=== PATIENT | female | born 1955 | race American Indian/Alaskan Native ===

== ENCOUNTER 2017-01-03 15:48 | Outpatient (CLI) | payer OTHER ==
--- NOTE | 2017-01-03 16:46 | Mammography Report ---
Screening mammogram: The patient has a heterogeneously dense breast pattern. There is a circumscribed mass in the right breast unchanged from prior exams dating back to 2014 and based on prior dictation at least 2013. The overall breast pattern is heterogeneously dense bilaterally. In the superior left breast seen only in the MLO projection is an asymmetry that I cannot identify on prior exams. It is not identifiable in the CC view. No other interval changes are identified. CAD used Impression: Right breast asymmetry. Recommendation: Additional views of the left breast. Ultrasound, if needed. BI-RADS CATEGORY: 0 = Needs additional imaging evaluation ACR BI-RADS MAMMOGRAPHIC CODES: 0 = Needs additional imaging evaluation; 1 = Negative; 2 = Benign; 3 = Probably benign; 4 = Suspicious; 5 = Malignant; 6 = Known biopsy-proven malignancy COMMENT: 1. Dense breast tissue, i.e., adenosis, fibrocystic changes, etc., may obscure an underlying neoplasm. 2. Approximately 10% of cancers are not detected with mammography. 3. A negative mammography report should not delay biopsy if a clinically suspicious mass is present.
== END 2017-01-03 15:49 | disposition home or self-care (01) ==
LOC: SPVWC 15:48
PROVIDERS: ATTEND Obstetrics & Gynecology
DX: Z12.31 Encounter for screening mammogram for malignant neoplasm of breast (principal)
CPT/HCPCS: 77067; G0202

== ENCOUNTER 2017-01-19 15:10 | Outpatient (CLI) | payer OTHER ==
--- NOTE | 2017-01-19 15:50 | Mammography Report ---
LEFT DIGITAL DIAGNOSTIC MAMMOGRAM : 01/19/17 15:10:00 CLINICAL: Recalled for asymmetry. COMPARISON:01/03/17 screening FINDINGS: Initial lateralmedial and spot views demonstrate a persistent asymmetry but a spot magnification MLO view demonstrates satisfactory effacement of the asymmetry. IMPRESSION: A probably benign asymmetry. BI-RADS CATEGORY: 3 - - Probably Benign RECOMMENDATION: Six month followup left mammogram. ACR BI-RADS MAMMOGRAPHIC CODES: 0 = Needs additional imaging evaluation; 1 = Negative; 2 = Benign; 3 = Probably benign; 4 = Suspicious; 5 = Malignant; 6 = Known biopsy-proven malignancy COMMENT: 1. Dense breast tissue, i.e., adenosis, fibrocystic changes, etc., may obscure an underlying neoplasm. 2. Approximately 10% of cancers are not detected with mammography. 3. A negative mammography report should not delay biopsy if a clinically suspicious mass is present. COMMENT: Patient follow-up letters are generated via our [employer] application.
== END 2017-01-19 15:11 | disposition home or self-care (01) ==
LOC: SPVWC 15:10
PROVIDERS: ATTEND Obstetrics & Gynecology
DX: R92.8 Other abnormal and inconclusive findings on diagnostic imaging of breast (principal)
CPT/HCPCS: G0206-LT

== ENCOUNTER 2017-08-23 13:07 | Outpatient (CLI) | payer OTHER ==
--- NOTE | 2017-08-25 13:00 | Mammography Report ---
LEFT DIGITAL DIAGNOSTIC MAMMOGRAM with CAD: 08/23/17 13:07:00 CLINICAL: Follow-up asymmetry. COMPARISON:01/19/17 FINDINGS: The breast is heterogeneously dense, which may obscure small masses. The previously described asymmetry is much smaller and correlates with a skin mole that is marked on this exam but not on previous exams. No mass, architectural distortion or suspicious calcifications. IMPRESSION: No mammographic evidence of malignancy. BI-RADS CATEGORY: 1 - - Negative RECOMMENDATION: Return to routine mammographic screening. ACR BI-RADS MAMMOGRAPHIC CODES: 0 = Needs additional imaging evaluation; 1 = Negative; 2 = Benign; 3 = Probably benign; 4 = Suspicious; 5 = Malignant; 6 = Known biopsy-proven malignancy COMMENT: 1. Dense breast tissue, i.e., adenosis, fibrocystic changes, etc., may obscure an underlying neoplasm. 2. Approximately 10% of cancers are not detected with mammography. 3. A negative mammography report should not delay biopsy if a clinically suspicious mass is present. COMMENT: Patient follow-up letters are generated by our [employer] application.
== END 2017-08-23 13:08 | disposition home or self-care (01) ==
LOC: SPVWC 13:07
PROVIDERS: ATTEND Obstetrics & Gynecology
DX: N64.89 Other specified disorders of breast (principal)

== ENCOUNTER 2018-08-29 13:07 | Outpatient (CLI) | payer OTHER ==
--- NOTE | 2018-08-30 08:15 | Mammography Report ---
BILATERAL DIGITAL SCREENING MAMMOGRAM with CAD: 08/29/18 13:07:00 CLINICAL: Routine screening. COMPARISON:01/03/17 FINDINGS: The breasts are heterogeneously dense, which may obscure small masses.A partially circumscribed right outer mass is smaller compared to the last exam. No new mass, architectural distortion or suspicious calcifications. IMPRESSION: No mammographic evidence of malignancy. BI-RADS CATEGORY: 2 - - Benign RECOMMENDATION: Routine mammographic screening in one year. COMMENT: Patient follow-up letters are generated by our [employer] application.
== END 2018-08-29 13:08 | disposition home or self-care (01) ==
LOC: SPVWC 13:07
PROVIDERS: ATTEND Obstetrics & Gynecology
DX: Z12.31 Encounter for screening mammogram for malignant neoplasm of breast (principal)
CPT/HCPCS: 77067

== ENCOUNTER 2019-09-04 14:28 | Outpatient (CLI) | payer OTHER | END 2019-09-04 14:29 | disposition home or self-care (01) | LOC: SPVWC 14:28 | PROVIDERS: ATTEND Obstetrics & Gynecology | DX: Z12.31 Encounter for screening mammogram for malignant neoplasm of breast (principal) | CPT/HCPCS: 77067 ==

== ENCOUNTER 2020-09-04 12:54 | Outpatient (CLI) | payer OTHER ==
--- NOTE | 2020-09-05 08:15 | Mammography Report ---
DIGITAL SCREENING MAMMOGRAM WITH CAD, 09/04/2020 INDICATION: Routine screening mammography. TECHNIQUE: Digital bilateral 2D mammography was obtained in the craniocaudal and mediolateral obliq ue projections. This examination was interpreted with the benefit of Computer-Aided Detection analysi s. COMPARISON: 09/04/1999 FINDINGS: Breast Density: The breasts are heterogeneously dense, which may obscure small masses. There is no evidence of dominant mass, suspicious calcifications or architectural distortion in eithe r breast. Persistent benign-appearing nodule right breast. IMPRESSION: Follow up recommendation: Routine yearly BI-RADS Category 2: Benign. A "normal" or negative report should not discourage follow up or biopsy of a clinically significant f inding. A written summary of these findings will be mailed to the patient. The patient will be entered into a mammography reporting system which will generate a reminder letter for the patient's next appointmen t at the appropriate interval. The [employer] recommends yearly mammograms starting at age 40 and continuing as l jeff as a woman is in good health. Breast MRI is recommended for women with an approximate 20-25% or greater lifetime risk of breast cancer, including women with a strong family history of breast or ova marybel cancer or who have been treated for Hodgkin's disease. Signer Name: Artie Isaac MD Signed: 09/05/2020 8:11 AM Workstation Name: [id number]
== END 2020-09-04 12:55 | disposition home or self-care (01) ==
LOC: SPVWC 12:54
PROVIDERS: ATTEND Obstetrics & Gynecology
DX: Z12.31 Encounter for screening mammogram for malignant neoplasm of breast (principal)
CPT/HCPCS: 77067

== ENCOUNTER 2021-09-09 13:52 | Outpatient (CLI) | payer OTHER | END 2021-09-09 13:53 | disposition home or self-care (01) | LOC: SPVWC 13:52 | PROVIDERS: ATTEND Obstetrics & Gynecology | DX: Z12.31 Encounter for screening mammogram for malignant neoplasm of breast (principal) | CPT/HCPCS: 77067 ==